=== PATIENT | male | born 1980 | race Caucasian/White ===

== ENCOUNTER 2016-09-13 11:28 | Inpatient (IN) | payer OTHER ==
[2016-09-13 12:03] LABS: Hematocrit 44 % (42-52); Hemoglobin 14.7 g/dl (14.0-18.0); Mean Corpuscular HGB Conc 34 g/dl (31-36); Mean Corpuscular Hemoglobin 29 pg (27-31); Mean Corpuscular Volume 88 fL (80-94); Mean Platelet Volume 8 um3 (7.4-10.4); Red Blood Count 4.98 10^6/ul (4.0-5.4); Red Cell Distribution Width 13 % (10.5-15)
[2016-09-13 12:15] LABS: ALT 16 U/L (7-52); AST 24 U/L (13-39); Alkaline Phosphatase 64 U/L (34-104); Anion Gap 7 mmol/L (2-11); BUN/Creatinine Ratio 9.1 (8-20); Blood Urea Nitrogen 13 mg/dL (6-24); CO2 Carbon Dioxide 28 mmol/L (22-32); Calcium 10.3 mg/dL (8.6-10.3); Chloride 105 mmol/L (101-111); EGFR African American 72.8 (>60); EGFR Non-African American 56.6 (>60); Globulin 2.7 g/dL (2-4); Glucose 96 mg/dL (70-100); Potassium 4.1 mmol/L (3.5-5.0); Sodium 140 mmol/L (133-145); Total Protein 7.7 g/dL (6.4-8.9)
[2016-09-13] MEDS ORDERED: Haloperidol INJ IV/IM* 5 MG/ML AMP ONE (12:24)
[2016-09-13] MEDS ORDERED: LORazepam INJ* 2 MG/ML 1 ML VIAL ONE (12:25)
[2016-09-13] MEDS ORDERED: Haloperidol INJ IV/IM* 5 MG/ML AMP IM ONE (12:49)
[2016-09-13] MEDS ORDERED: LORazepam INJ* 2 MG/ML 1 ML VIAL IM ONE (12:49)
[2016-09-13 12:54] LABS: Acetaminophen < 15 mcg/mL; Alcohol < 10 mg/dL (<10); Salicylate < 2.50 mg/dL (<30)
[2016-09-13 13:05] LABS: TSH (Thyroid Stimulating Horm) 1.63 mcIU/mL (0.34-5.60)
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
[2016-09-13] MEDS ORDERED: Cetirizine* 10 MG TAB PO PRN (17:17)
[2016-09-13] MEDS ORDERED: Nicotine Inhaler* 10 MG AMP INH PRN (17:20)
[2016-09-13 17:24] LABS: Urine Bilirubin Negative (Negative); Urine Glucose Negative (Negative); Urine Nitrite Negative (Negative)
[2016-09-13 17:43] LABS: Benzodiazepine Urine Screen None Detected (None Detect)
[2016-09-13] MEDS: Gabapentin CAP(*) 300 MG PO SCH (20:45)
[2016-09-13] MEDS: Zolpidem TAB* 10 MG PO PRN (20:45)
[2016-09-13] MEDS: clonazePAM TAB(*) 1 MG PO PRN (20:47)
[2016-09-13] MEDS ORDERED: diPHENhydraMINE PO* 50 MG ONE (23:09)
[2016-09-14] MEDS: clonazePAM TAB(*) 1 MG PO PRN (01:45)
[2016-09-14] MEDS ORDERED: Acetaminophen TAB* 325 MG ONE (06:15)
[2016-09-14] MEDS: DULoxetine DR CAP* 60 MG CAP.DR PO SCH (08:30)
[2016-09-14] MEDS: Gabapentin CAP(*) 300 MG PO SCH ×3 (08:31→21:36)
[2016-09-14] MEDS: Fluticasone NASAL SPRAY 50MCG* 16 gm SPRAY BTL BOTH NARES SCH (09:47)
[2016-09-14] MEDS: KETOTIFEN FUMARATE 0.025% OPHTHALMIC SCH (09:48)
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
[2016-09-14] MEDS: Acetaminophen TAB* 325 MG PO PRN (20:26)
[2016-09-14] MEDS: Zolpidem TAB* 10 MG PO PRN (21:36)
[2016-09-14] MEDS: diPHENhydraMINE PO* 50 MG PO PRN (21:36)
[2016-09-15] MEDS: Gabapentin CAP(*) 300 MG PO SCH ×3 (08:54→21:30)
[2016-09-15] MEDS: DULoxetine DR CAP* 60 MG CAP.DR PO SCH (08:54)
[2016-09-15] MEDS: Cetirizine* 10 MG TAB PO SCH (08:55)
[2016-09-15] MEDS: Artificial Tears* 15 ML BTL BOTH EYES PRN (08:55)
[2016-09-15] MEDS: KETOTIFEN FUMARATE 0.025% OPHTHALMIC SCH (09:03)
[2016-09-15] MEDS: Fluticasone NASAL SPRAY 50MCG* 16 gm SPRAY BTL BOTH NARES SCH (09:03)
[2016-09-15] MEDS: Acetaminophen TAB* 325 MG PO PRN (11:08)
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
--- NOTE | 2016-09-15 18:13 | PN ---
Subjective - Subjective Subjective: Patient refused to see Tyrell Enrique CYBER LEGAL ADVISOR because he was not a psychiatrist. The patient does not have a set psychiatrist since Dr. Ndiaye is on vacation. He is mainly interested in obtaining Provigil from me, saying that he had sleep apnea (the last study was inconclusive but leaned against; the patient ended the study early). Objective - Appearance Appearance: Well Developed/Nourished Dysmorphic Features: No Hygiene: Normal Grooming: Well Kept - Behavior Psychomotor Activities: Normal Exhibits Abnormal Movement: No - Attitude and Relatedness Attitude and Relatedness: Dismissive Eye Contact: Fair - Speech Quality: Unpressured Latencies: Normal Quantity: Appropriate - Mood Patient's Decription of Mood: "Okay" - Affect Observed Affect: Constricted Affect Consistent with: Euthymia - Thought Process Patient's Thought Process: Over Inclusive Thought Content: No Passive Wish, No Suicidal Planning, No Homicidal Ideation, No Paranoid Ideation - Sensorium Experiencing Hallucinations: No, Sensorium is Clear Type of Hallucinations: Visual: No, Auditory: No, Command: No - Level of Consciousness Level of Consciousness: Alert Orientation: Yes Intact, Yes Orientated to Time, Yes Orientated to Place, Yes Orientated to Person - Impulse Control Impulse Control: Impaired - Insight and Judgement Insight and Judgement: Poor - Group Participation Particating in Group Activities: Yes - Medication Management Medication Management Adherence: Yes Assessment - Assessment Merits Inpatient Hospitalization: For Immediate Safety, Consolidate Improvements Inpatient DSM-IV Dx: Unspecified Psychotic Disorder, Unspecified Impulse control disorder Clinical Impression: The patient has no sedation despite request for Provigil. He reports a past diagnosis of sleep apnea. I advised him that Klonopin has been shown to worsen sleep apnea. I was willing to consider a Provigil prescription if he had a prescriber before his stay here and will have one later; it became apparent that he is obtaining the pills illicitly. He requested to defer our conversation and will discuss with his next doctor. He has been quite impulsive, reporting a seroquel overdose with alleged intent to some days ago and having psychomotor agitation at the [facility] program. He needs further treatment to stabilize this affective impulsivity. Plan - Plan Treatment Plan: Name: SAUMYA GARDUNO Birthdate: 1980 [id number] Medications: Current Medications Acetaminophen (Tylenol Tab*) 650 mg PO Q4H PRN PRN Reason: PAIN Last Admin: 09/15/16 11:08 Dose: 650 mg Cetirizine HCl (Zyrtec*) 10 mg PO DAILY [facility] Last Admin: 09/15/16 08:55 Dose: 10 mg Clonazepam (Klonopin Tab(*)) 1 mg PO BID PRN PRN Reason: ANXIETY Last Admin: 09/14/16 01:45 Dose: 1 mg Diphenhydramine HCl (Benadryl Po*) 50 mg PO BEDTIME PRN PRN Reason: INSOMNIA Last Admin: 09/14/16 21:36 Dose: 50 mg Duloxetine HCl (Cymbalta Cap*) 60 mg PO DAILY [facility] Last Admin: 09/15/16 08:54 Dose: 60 mg Fluticasone Propionate (Flonase Nasal [place] 50mcg*) 1 spray BOTH NARES DAILY [facility] Last Admin: 09/15/16 09:03 Dose: Not Given Gabapentin (Neurontin Cap(*)) 600 mg PO TID [facility] Last Admin: 09/15/16 13:17 Dose: 600 mg Nicotine (Nicotine Inhaler*) 10 mg INH Q2H PRN PRN Reason: CRAVING Ketotifen Fumarate ( Ophth) [Zaditor] 0. 025 % 0.025 % OPHTHALMIC DAILY [facility] Last Admin: 09/15/16 09:03 Dose: Not Given Polyvinyl Alcohol (Polyvinyl Alcohol 1.4% Opth*) 1 - 2 drop BOTH EYES Q2H PRN PRN Reason: DRY EYES Last Admin: 09/15/16 08:55 Dose: 2 maria fernanda Zolpidem Tartrate (Ambien Tab*) 10 mg PO BEDTIME PRN PRN Reason: INSOMNIA Last Admin: 09/14/16 21:36 Dose: 10 mg - Discharge Plan Discharge Plan: Outpatient Follow Up Outpatient Program: [facility]
[2016-09-15] MEDS: Zolpidem TAB* 10 MG PO PRN (21:32)
[2016-09-15] MEDS: clonazePAM TAB(*) 1 MG PO PRN (21:32)
[2016-09-16] MEDS: clonazePAM TAB(*) 1 MG PO PRN (09:05)
[2016-09-16] MEDS: Cetirizine* 10 MG TAB PO SCH (09:06)
[2016-09-16] MEDS: Gabapentin CAP(*) 300 MG PO SCH ×3 (09:06→21:27)
[2016-09-16] MEDS: DULoxetine DR CAP* 60 MG CAP.DR PO SCH (09:06)
[2016-09-16] MEDS: Fluticasone NASAL SPRAY 50MCG* 16 gm SPRAY BTL BOTH NARES SCH (09:07)
[2016-09-16] MEDS: KETOTIFEN FUMARATE 0.025% OPHTHALMIC SCH (09:09)
[2016-09-16 09:55] LABS: Calcium 9.5 mg/dL (8.6-10.3); EGFR African American 98.5 (>60); EGFR Non-African American 76.6 (>60); Potassium 4.2 mmol/L (3.5-5.0)
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
[2016-09-16] MEDS: OMEGA PO SCH ×2 (20:59→21:32)
[2016-09-16] MEDS: FATTY ACIDS PO SCH ×2 (20:59→21:32)
[2016-09-16] MEDS: Zolpidem TAB* 10 MG PO PRN (21:29)
[2016-09-17] MEDS: DULoxetine DR CAP* 60 MG CAP.DR PO SCH (09:05)
[2016-09-17] MEDS: Cetirizine* 10 MG TAB PO SCH (09:05)
[2016-09-17] MEDS: Gabapentin CAP(*) 300 MG PO SCH ×3 (09:05→21:14)
[2016-09-17] MEDS: OMEGA PO SCH (09:06)
[2016-09-17] MEDS: FATTY ACIDS PO SCH (09:06)
[2016-09-17] MEDS: KETOTIFEN FUMARATE 0.025% OPHTHALMIC SCH (09:07)
[2016-09-17] MEDS: clonazePAM TAB(*) 1 MG PO PRN (09:08)
[2016-09-17] MEDS: Fluticasone NASAL SPRAY 50MCG* 16 gm SPRAY BTL BOTH NARES SCH (09:13)
[2016-09-17] MEDS: Artificial Tears* 15 ML BTL BOTH EYES PRN ×2 (09:51→21:13)
[2016-09-17] MEDS: Acetaminophen TAB* 325 MG PO PRN ×3 (09:51→21:14)
[2016-09-17] MEDS: Zolpidem TAB* 10 MG PO PRN (21:14)
[2016-09-18] MEDS: OMEGA PO SCH (08:26)
[2016-09-18] MEDS: FATTY ACIDS PO SCH (08:26)
[2016-09-18] MEDS: Cetirizine* 10 MG TAB PO SCH (08:28)
[2016-09-18] MEDS: DULoxetine DR CAP* 60 MG CAP.DR PO SCH (08:28)
[2016-09-18] MEDS: Gabapentin CAP(*) 300 MG PO SCH ×3 (08:28→21:49)
[2016-09-18] MEDS: Fluticasone NASAL SPRAY 50MCG* 16 gm SPRAY BTL BOTH NARES SCH (08:29)
[2016-09-18] MEDS: KETOTIFEN FUMARATE 0.025% OPHTHALMIC SCH (08:30)
--- NOTE | 2016-09-18 14:02 | PN ---
MHU: Group Therapy Note - Service Type Service Type: [id number] Group Psychotherapy - Cognitive Behavioral Group Therapy ( CBT):Patient was attentive and participatory in CBT programming this morning, and remained in good behavioral control. Patient expressed positive insights regarding relevant treatment interventions and goals.
[2016-09-18] MEDS: clonazePAM TAB(*) 1 MG PO PRN ×2 (16:47→21:50)
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
[2016-09-18] MEDS: diPHENhydraMINE PO* 50 MG PO PRN (21:50)
[2016-09-19] MEDS: Gabapentin CAP(*) 300 MG PO SCH ×3 (09:04→21:53)
[2016-09-19] MEDS: Cetirizine* 10 MG TAB PO SCH (09:04)
[2016-09-19] MEDS: clonazePAM TAB(*) 1 MG PO SCH (09:04)
[2016-09-19] MEDS: OMEGA PO SCH (09:05)
[2016-09-19] MEDS: FATTY ACIDS PO SCH (09:05)
[2016-09-19] MEDS: DULoxetine DR CAP* 60 MG CAP.DR PO SCH (09:06)
[2016-09-19] MEDS: KETOTIFEN FUMARATE 0.025% OPHTHALMIC SCH (09:07)
[2016-09-19] MEDS: Fluticasone NASAL SPRAY 50MCG* 16 gm SPRAY BTL BOTH NARES SCH (09:07)
--- NOTE | 2016-09-19 11:08 | PN ---
MHU: Group Therapy Note - Service Type Service Type: [id number] Group Psychotherapy - Cognitive Behavioral Group Therapy ( CBT):Patient was attentive and participatory in CBT programming this morning, and remained in good behavioral control. Patient expressed positive insights regarding relevant treatment interventions and goals.
--- NOTE | 2016-09-19 17:28 | PN ---
Subjective - Subjective Service Type: [id number] Hosp care 15 min low complexity Subjective: Tree was difficult to engage today as he presents with odd delays in responding to questions and can appear argumentative at times. He was upset about an interaction with a peer, who apparently said something in front of the milieu that hurt his feelings, but declines to give me more details, saying "I already processed it with staff." He expresses an interest in having a meeting with Lila Bess, the director of the [facility] program at [facility], to resolve the situation at the clinic leading to his 9.45 transfer to [facility]. SW is arranging that. He continues to deny SI, HI, AH and VH. Objective - Appearance Appearance: Well Developed/Nourished Dysmorphic Features: No Hygiene: Normal Grooming: Well Kept - Behavior Psychomotor Activities: Normal Exhibits Abnormal Movement: No - Attitude and Relatedness Attitude and Relatedness: Guarded Eye Contact: Fair - Speech Quality: Unpressured Latencies: Long Quantity: Appropriate - Mood Patient's Decription of Mood: "Upset" - Affect Observed Affect: Constricted Affect Consistent with: Dysphoria - Thought Process Patient's Thought Process: Circumstantial Thought Content: Yes Paranoid Ideation, No Passive Wish, No Suicidal Planning, No Homicidal Ideation - Sensorium Experiencing Hallucinations: No, Sensorium is Clear Type of Hallucinations: Visual: No, Auditory: No, Command: No - Level of Consciousness Level of Consciousness: Alert Orientation: Yes Intact, Yes Orientated to Time, Yes Orientated to Place, Yes Orientated to Person - Impulse Control Impulse Control: Tenuous - Insight and Judgement Insight and Judgement: Fair - Group Participation Particating in Group Activities: Yes - Medication Management Medication Management Adherence: Yes Assessment - Assessment Merits Inpatient Hospitalization: For Immediate Safety, For Stabilization Inpatient DSM-IV Dx: Unspecified Psychotic Disorder, Unspecified Impulse control disorder Clinical Impression: 35 y.o. mixed-race (white and ) single male with a history of chronic depression admitted involuntarily from [facility], where he had presented as agitated and admitting to a recent suicide attempt via overdose on quetiapine. Plan - Plan Treatment Plan: Name: TREE GARDUNO Birthdate: 1980 [id number] The patient remains on his outpatient regimen of gabapentin, duloxetine, clonazepam and zolpidem. His affect seemed worse today and there are concerns that he may be hiding a psychotic process. We will try to facilitate a meeting with [facility] prior to his discharge. Consider MMPI. Continued Medication Management: Continue Outpt Medication Medications: Current Medications Acetaminophen (Tylenol Tab*) 650 mg PO Q4H PRN PRN Reason: PAIN Last Admin: 09/17/16 21:14 Dose: 650 mg Cetirizine HCl (Zyrtec*) 10 mg PO DAILY [facility] Last Admin: 09/19/16 09:04 Dose: 10 mg Clonazepam (Klonopin Tab(*)) 1 mg PO BID PRN PRN Reason: ANXIETY Last Admin: 09/18/16 21:50 Dose: 1 mg Clonazepam (Klonopin Tab(*)) 1 mg PO DAILY [facility] Last Admin: 09/19/16 09:04 Dose: 1 mg Diphenhydramine HCl (Benadryl Po*) 50 mg PO BEDTIME PRN PRN Reason: INSOMNIA Last Admin: 09/18/16 21:50 Dose: 50 mg Duloxetine HCl (Cymbalta Cap*) 60 mg PO DAILY [facility] Last Admin: 09/19/16 09:06 Dose: 60 mg Fish Oil (Fish Oil (Nf)) 7,000 mg PO DAILY [facility] PRN Reason: Protocol Last Admin: 09/19/16 09:05 Dose: 7,000 mg Fluticasone Propionate (Flonase Nasal [place] 50mcg*) 1 spray BOTH NARES DAILY [facility] Last Admin: 09/19/16 09:07 Dose: Not Given Gabapentin (Neurontin Cap(*)) 600 mg PO TID [facility] Last Admin: 09/19/16 14:15 Dose: 600 mg Nicotine (Nicotine Inhaler*) 10 mg INH Q2H PRN PRN Reason: CRAVING Ketotifen Fumarate ( Ophth) [Zaditor] 0. 025 % 0.025 % OPHTHALMIC DAILY [facility] Last Admin: 09/19/16 09:07 Dose: Not Given Polyvinyl Alcohol (Polyvinyl Alcohol 1.4% Opth*) 1 - 2 drop BOTH EYES Q2H PRN PRN Reason: DRY EYES Last Admin: 09/17/16 21:13 Dose: 2 maria fernanda Zolpidem Tartrate (Ambien Tab*) 10 mg PO BEDTIME PRN PRN Reason: INSOMNIA Last Admin: 09/17/16 21:14 Dose: 10 mg - Discharge Plan Discharge Plan: Inpatient Hospitalization
[2016-09-19] MEDS: diPHENhydraMINE PO* 50 MG PO PRN (21:56)
[2016-09-20] MEDS: clonazePAM TAB(*) 1 MG PO SCH (08:46)
[2016-09-20] MEDS: OMEGA PO SCH (08:46)
[2016-09-20] MEDS: FATTY ACIDS PO SCH (08:46)
[2016-09-20] MEDS: DULoxetine DR CAP* 60 MG CAP.DR PO SCH (08:47)
[2016-09-20] MEDS: Cetirizine* 10 MG TAB PO SCH (08:47)
[2016-09-20] MEDS: Gabapentin CAP(*) 300 MG PO SCH ×3 (08:47→21:06)
[2016-09-20] MEDS: Fluticasone NASAL SPRAY 50MCG* 16 gm SPRAY BTL BOTH NARES SCH (08:55)
[2016-09-20] MEDS: KETOTIFEN FUMARATE 0.025% OPHTHALMIC SCH (08:55)
[2016-09-20] MEDS ORDERED: Naphazoline/Pheniramine OPTH* 5 ML BTL BOTH EYES PRN (10:15)
--- NOTE | 2016-09-20 14:10 | PN ---
MHU: Group Therapy Note - Service Type Service Type: [id number] Group Psychotherapy - Cognitive Behavioral Group Therapy ( CBT):Patient was attentive and participatory in CBT programming this morning, and remained in good behavioral control. Patient expressed positive insights regarding relevant treatment interventions and goals.
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
[2016-09-20] MEDS: diPHENhydraMINE PO* 50 MG PO PRN (21:06)
[2016-09-21 07:55] VITALS: BP 123/75
[2016-09-21] MEDS: clonazePAM TAB(*) 1 MG PO SCH (08:51)
[2016-09-21] MEDS: Fluticasone NASAL SPRAY 50MCG* 16 gm SPRAY BTL BOTH NARES SCH (08:51)
[2016-09-21] MEDS: DULoxetine DR CAP* 60 MG CAP.DR PO SCH (08:51)
[2016-09-21] MEDS: Cetirizine* 10 MG TAB PO SCH (08:52)
[2016-09-21] MEDS: Gabapentin CAP(*) 300 MG PO SCH (08:52)
[2016-09-21] MEDS: FATTY ACIDS PO SCH (08:54)
[2016-09-21] MEDS: OMEGA PO SCH (08:54)
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
== END 2016-09-21 12:15 | disposition home or self-care (01) | DRG 754 ==
LOC: ED 11:28 → BSU 15:18
PROVIDERS: ADMIT Psychiatry & Neurology Psychiatry; ATTEND Psychiatry & Neurology Psychiatry
PROC: GZHZZZZ Group Psychotherapy (ICD-10-PCS; principal; 2016-09-15)
DX: F32.9 Major depressive disorder, single episode, unspecified (principal); G62.9 Polyneuropathy, unspecified; F41.9 Anxiety disorder, unspecified; G89.29 Other chronic pain; G47.30 Sleep apnea, unspecified; F63.9 Impulse disorder, unspecified; F41.1 Generalized anxiety disorder; Z91.5 Personal history of self-harm; Z82.49 Family history of ischemic heart disease and other diseases of the circulatory system; Z81.8 Family history of other mental and behavioral disorders
CPT/HCPCS: 36415; 80048; 80053; 80307; 80320; 80329; 81003; 84443; 85025; 90853; 93005; 99222; 99231; 99233; 99238; A9270-GY; G0480; J1630; J2060

== ENCOUNTER 2016-11-16 13:55 | Emergency (ER) | payer OTHER ==
[2016-11-16] MEDS ORDERED: NS 0.9% 1000 ML* 1,000 ML IV ONE ×2 (14:04→16:33)
[2016-11-16 14:32] LABS: Hematocrit 43 % (42-52); Hemoglobin 14.3 g/dl (14.0-18.0); Mean Corpuscular HGB Conc 33 g/dl (31-36); Mean Corpuscular Hemoglobin 28 pg (27-31); Mean Corpuscular Volume 85 fL (80-94); Mean Platelet Volume 8 um3 (7.4-10.4); Red Blood Count 5.06 10^6/ul (4.0-5.4); Red Cell Distribution Width 13 % (10.5-15); White Blood Count 7.5 10^3/ul (3.5-10.8)
[2016-11-16 14:47] LABS: ALT 17 U/L (7-52); AST 24 U/L (13-39); Albumin 4.3 g/dL (3.2-5.2); Alkaline Phosphatase 72 U/L (34-104); Anion Gap 7 mmol/L (2-11); BUN/Creatinine Ratio 8.4 (8-20); Blood Urea Nitrogen 10 mg/dL (6-24); CO2 Carbon Dioxide 25 mmol/L (22-32); Calcium 9.6 mg/dL (8.6-10.3); Chloride 106 mmol/L (101-111); Creatine Kinase 203 U/L (10-223); EGFR African American 89.5 (>60); EGFR Non-African American 69.6 (>60); Globulin 2.5 g/dL (2-4); Glucose 116 mg/dL (70-100); Potassium 3.5 mmol/L (3.5-5.0); Sodium 138 mmol/L (133-145); Total Protein 6.8 g/dL (6.4-8.9)
[2016-11-16 15:04] LABS: Acetaminophen < 15 mcg/mL; Alcohol < 10 mg/dL (<10)
--- NOTE | 2016-11-16 15:07 | RAD ---
Indication: Confusion, hemorrhage. CT of the brain was performed without IV contrast. Ventricular structures are midline. No midline shift is noted. The extra-axial spaces are unremarkable. There is no evidence of intracranial mass or hemorrhage. No other high or low density lesions are identified. There is evidence of chronic sinusitis of the left maxillary sinus. Mastoid air cells are otherwise unremarkable. IMPRESSION: No intracranial mass or hemorrhage is noted.
[2016-11-16 15:14] LABS: TSH (Thyroid Stimulating Horm) 2.57 mcIU/mL (0.34-5.60)
[2016-11-16 17:50] LABS: Urine Bilirubin Negative (Negative); Urine Glucose Negative (Negative); Urine Nitrite Negative (Negative)
[2016-11-16 18:11] LABS: Benzodiazepine Urine Screen None Detected (None Detect)
--- NOTE | 2016-11-16 22:39 | ED ---
Jose Alejandro Diaz Thomas, scribed for Noel Stovall MD on 11/16/16 at 1404 . Altered Mental Status - HPI Summary HPI Summary: Pt is a 36 y/o M BIBA with AMS characterized as unresponsiveness s/p suspected administration of 2 sleeping pills [employer]IAN. Per EMS, pt was at the library when EMS was called, and when EMS arrived they applied Narcan. Per EMS, the pt was responsive to painful stimuli. The EMS notes that the pt was prescribed sleeping medication 7 days ago but he was found with only 5 pills. In the ED, the pt is snoring loudly. The patient woke during the physical exam. Patient is a level 5 caveat due to AMS characterized as unresponsiveness. - History Of Current Complaint Stated Complaint: UNRESPONSIVE Time Seen by Provider: 11/16/16 14:00 Hx Obtained From: Patient, EMS Hx From Patient Unobtainable Due To: Other - AMS characterized as unresponsiveness Onset/Duration: Unknown Character: Responsiveness - Unresponsiveness Aggravating Factor(s): Unknown Alleviating Factor(s): Unknown - Allergies/Home Medications Allergies/Adverse Reactions: Allergies Allergy/AdvReac Type Severity Reaction Status Date / Time No Known Allergies Allergy Verified 09/13/16 12:30 PMH/Surg Hx/FS Hx/Imm Hx Previously Healthy: No Respiratory History: Reports: Hx Sleep Apnea Sensory History: Reports: Hx Contacts or Glasses Denies: Hx Hearing Aid Opthamlomology History: Reports: Hx Contacts or Glasses Psychiatric History: Reports: Hx Anxiety, Hx Depression Denies: Hx Eating Disorder, Hx of Violent Episodes Against Others - Surgical History Surgery Procedure, Year, and Place: No surgeries. - Family History Known Family History: Positive: Cardiac Disease - Ventricular fib. , Other - Mild depression mother. - Social History Alcohol Use: Weekly Hx Substance Use: Yes Substance Use Type: Reports: Other Substance Use Comment - Amount & Last Used: possible OD yesterday but details vague, pt not answering Hx Tobacco Use: No Smoking Status (MU): Unknown if Ever Smoked Review of Systems - ROS Summary Review of Systems Summary: Patient is a level 5 caveat due to unresponsiveness and AMS. Neurological: Other - POS: AMS characterized as unresponsiveness All Other Systems Reviewed And Are Negative: No Physical Exam - Summary Physical Exam Summary: The patient is well-nourished in no acute distress and in no acute pain. The skin is warm and dry and skin color reflects adequate perfusion. HEENT: No hemotympanum. The head is normocephalic and atraumatic. The pupils are equal and reactive. Dilated pupils. The conjunctivae are clear and without drainage. Nares are patent and without drainage. Mouth reveals moist mucous membranes and the throat is without erythema and exudate. The external ears are intact. The ear canals are patent and without drainage. The tympanic membranes are intact. Neck is supple with full range of motion and non-tender. There is no neck vein distension. Respiratory: Chest is non-tender. Lungs are clear to auscultation and breath sounds are symmetrical and equal. Cardiovascular: Hear is regular rate and rhythm. There is no murmur or rub auscultated. There is no peripheral edema and pulses are symmetrical and equal. Abdomen: The abdomen is soft and non-tender. There are normal bowel sounds heard in all four quadrants and there is no organomegaly palpated. Musculoskeletal: No evidence of head trauma. No basilar skull fracture. No gray or racoon sign. There is no back pain noted. Extremities are non-tender with full range of motion. There is good capillary refill. There is no peripheral edema or calf tenderness elicited. Neurological: Somnolent. Responds to painful stimuli. Follows commands. The patient has symmetrical motor strength in all four extremities. Deep tendon reflexes are symmetrical and equal in all four extremities. Good gag reflex. Psychiatric: The patient has an appropriate affect and does not exhibit any anxiety or depression. Triage Information Reviewed: Yes Vital Signs On Initial Exam: Initial Vitals BP 137/85 11/16/16 14:01 Vital Signs Reviewed: Yes Diagnostics - Vital Signs Vital Signs Temp Pulse Resp BP Pulse Ox 11/16/16 21:23 97.8 F 98 17 137/82 98 11/16/16 20:30 122/88 11/16/16 20:16 93 121/73 97 11/16/16 20:00 86 96 11/16/16 19:30 91 129/86 98 11/16/16 19:17 102 99 11/16/16 19:15 133/83 11/16/16 17:00 18 11/16/16 16:00 98 14 98 11/16/16 15:00 109 15 98 11/16/16 14:30 114 15 131/71 96 06/22/17 14:18 97.7 F 113 18 137/85 96 11/16/16 14:02 131 20 96 11/16/16 14:01 137/85 - Laboratory Lab Results: Lab Results 11/16/16 11/16/16 11/16/16 Range/Units 14:15 14:15 14:15 WBC 7.5 (3.5-10.8) 10^3/ul RBC 5.06 (4.0-5.4) 10^6/ul Hgb 14.3 (14.0-18.0) g/dl Hct 43 (42-52) % MCV 85 (80-94) fL MCH 28 (27-31) pg MCHC 33 (31-36) g/dl RDW 13 (10.5-15) % Plt Count 226 (150-450) 10^3/ul MPV 8 (7.4-10.4) um3 Neut % (Auto) 61.3 (38-83) % Lymph % (Auto) 27.3 (25-47) % [place] % (Auto) 8.7 (1-9) % Eos % (Auto) 1.8 (0-6) % Baso % (Auto) 0.9 (0-2) % Absolute Neuts (auto) 4.6 (1.5-7.7) 10^3/ul Absolute Lymphs (auto) 2.0 (1.0-4.8) 10^3/ul Absolute Monos (auto) 0.7 (0-0.8) 10^3/ul Absolute Eos (auto) 0.1 (0-0.6) 10^3/ul Absolute Basos (auto) 0.1 (0-0.2) 10^3/ul Absolute Nucleated RBC 0.01 10^3/ul Nucleated RBC % 0.1 Sodium 138 (133-145) mmol/L Potassium 3.5 (3.5-5.0) mmol/L Chloride 106 (101-111) mmol/L Carbon Dioxide 25 (22-32) mmol/L Anion Gap 7 (2-11) mmol/L BUN 10 (6-24) mg/dL Creatinine 1.19 H (0.67-1.17) mg/dL Est GFR ( Amer) 89.5 (>60) Est GFR (Non-Af Amer) 69.6 (>60) BUN/Creatinine Ratio 8.4 (8-20) Glucose 116 H (70-100) mg/dL Lactic Acid 1.6 (0.5-2.0) mmol/L Calcium 9.6 (8.6-10.3) mg/dL Magnesium 2.0 (1.9-2.7) mg/dL Total Bilirubin 0.40 (0.2-1.0) mg/dL AST 24 (13-39) U/L ALT 17 (7-52) U/L Alkaline Phosphatase 72 (34-104) U/L Total Creatine Kinase 203 (10-223) U/L Troponin I 0.00 (<0.04) ng/mL Total Protein 6.8 (6.4-8.9) g/dL Albumin 4.3 (3.2-5.2) g/dL Globulin 2.5 (2-4) g/dL Albumin/Globulin Ratio 1.7 (1-3) TSH 2.57 (0.34-5.60) mcIU/mL Urine Color Urine Appearance Urine pH (5-9) Ur Specific [place] (1.010-1.030) Urine Protein (Negative) Urine Ketones (Negative) Urine Blood (Negative) Urine Nitrate (Negative) Urine Bilirubin (Negative) Urine Urobilinogen (Negative) Ur Leukocyte Esterase (Negative) Urine Glucose (Negative) Salicylates 3.20 (<30) mg/dL Urine Opiates Screen (None Detect) Acetaminophen < 15 mcg/mL Ur Barbiturates Screen (None Detect) Ur Phencyclidine Scrn (None Detect) Ur Amphetamines Screen (None Detect) U Benzodiazepines Scrn (None Detect) Urine Cocaine Screen (None Detect) U Cannabinoids Screen (None Detect) Serum Alcohol < 10 (<10) mg/dL 11/16/16 11/16/16 Range/Units 17:39 17:39 WBC (3.5-10.8) 10^3/ul RBC (4.0-5.4) 10^6/ul Hgb (14.0-18.0) g/dl Hct (42-52) % MCV (80-94) fL MCH (27-31) pg MCHC (31-36) g/dl RDW (10.5-15) % Plt Count (150-450) 10^3/ul MPV (7.4-10.4) um3 Neut % (Auto) (38-83) % Lymph % (Auto) (25-47) % [place] % (Auto) (1-9) % Eos % (Auto) (0-6) % Baso % (Auto) (0-2) % Absolute Neuts (auto) (1.5-7.7) 10^3/ul Absolute Lymphs (auto) (1.0-4.8) 10^3/ul Absolute Monos (auto) (0-0.8) 10^3/ul Absolute Eos (auto) (0-0.6) 10^3/ul Absolute Basos (auto) (0-0.2) 10^3/ul Absolute Nucleated RBC 10^3/ul Nucleated RBC % Sodium (133-145) mmol/L Potassium (3.5-5.0) mmol/L Chloride (101-111) mmol/L Carbon Dioxide (22-32) mmol/L Anion Gap (2-11) mmol/L BUN (6-24) mg/dL Creatinine (0.67-1.17) mg/dL Est GFR ( Amer) (>60) Est GFR (Non-Af Amer) (>60) BUN/Creatinine Ratio (8-20) Glucose (70-100) mg/dL Lactic Acid (0.5-2.0) mmol/L Calcium (8.6-10.3) mg/dL Magnesium (1.9-2.7) mg/dL Total Bilirubin (0.2-1.0) mg/dL AST (13-39) U/L ALT (7-52) U/L Alkaline Phosphatase (34-104) U/L Total Creatine Kinase (10-223) U/L Troponin I (<0.04) ng/mL Total Protein (6.4-8.9) g/dL Albumin (3.2-5.2) g/dL Globulin (2-4) g/dL Albumin/Globulin Ratio (1-3) TSH (0.34-5.60) mcIU/mL Urine Color Yellow Urine Appearance Clear Urine pH 5.0 (5-9) Ur Specific [place] 1.009 L (1.010-1.030) Urine Protein Negative (Negative) Urine Ketones Negative (Negative) Urine Blood Negative (Negative) Urine Nitrate Negative (Negative) Urine Bilirubin Negative (Negative) Urine Urobilinogen Negative (Negative) Ur Leukocyte Esterase Negative (Negative) Urine Glucose Negative (Negative) Salicylates (<30) mg/dL Urine Opiates Screen None detected (None Detect) Acetaminophen mcg/mL Ur Barbiturates Screen None detected (None Detect) Ur Phencyclidine Scrn None detected (None Detect) Ur Amphetamines Screen None detected (None Detect) U Benzodiazepines Scrn None detected (None Detect) Urine Cocaine Screen None detected (None Detect) U Cannabinoids Screen None detected (None Detect) Serum Alcohol (<10) mg/dL Result Diagrams: 11/16/16 14:15 11/16/16 14:15 Lab Statement: Any lab studies that have been ordered have been reviewed, and results considered in the medical decision making process. - CT Brain CT CT Interpretation: No Acute Changes - No intracranial mass of hemorrhage is noted. CT Interpretation Completed By: Radiologist - EKG 1419 Cardiac Rate: Tachycardia - 115 bpm EKG Rhythm: Sinus Tachycardia ST Segment: Non-Specific - Non-specific ST changes EKG Interpretation: Normal axis, no STEMI Re-Evaluation - Re-Evaluation First Eval Re-Evaluation Time: 18:10 Change: Unchanged Comment: Patient is awake. He says he was at the library and fell asleep. He says he took 2 Ambien to overcome his social anxiety and "get things done". He denies trying to hurt himself. He does not always take 2 Ambien. Fell asleep library. Was chilling at library. Took Ambien to overcome social anxiety and get thigns done. Was not tyring to hurt self. Doesnt always take 2 ambien. Not hearing voices. Was recently at hospital for OD. Cleared for MHE Altered Mental Statu Course/Dx - Course Course Of Treatment: Pt is a 36 y/o M BIBA with AMS and unresponsiveness. Per EMS, pt was at the library when EMS was called, and when EMS arrived they applied Narcan. Per EMS, the pt was responsive to painful stimuli. The EMS notes that the pt was prescribed sleeping pills 7 days ago but he was found with only 5 pills. In the ED, the pt is snoring loudly. The patient woke during the physical exam. Patient is a level 5 caveat due to unresponsiveness and AMS. Medically cleared for MHE at 2025. Brain CT reveals no acute findings. EKG reveals no STEMI. - Diagnoses Discharge Diagnoses: Overdose, Depression Discharge - Discharge Plan Condition: Stable Disposition: OTHER Discharge Disposition Comment: Pt will be signed out, pending dispo, awaiting MHE. Referrals: Maribell Allan MD [Primary Care Provider] - The documentation as recorded by the Jose Alejandro ryder Thomas accurately reflects the service I personally performed and the decisions made by me, Noel Stovall MD.
[2016-11-17 00:40] VITALS: BP 126/81
== END 2016-11-17 00:43 ==
LOC: ED 13:55
DX: T65.91XA Toxic effect of unspecified substance, accidental (unintentional), initial encounter (principal); F32.9 Major depressive disorder, single episode, unspecified; Y92.9 Unspecified place or not applicable
CPT/HCPCS: 36415; 70450; 80053; 80307; 80320; 80329; 81003; 82550; 83605; 83735; 84443; 84484; 85025; 93005; 99284; G0480

== ENCOUNTER 2023-06-05 11:33 | Inpatient (IN) ==
[~2023-06-05 11:33] MED LIST: Influenza vaccine *QUAD* *2023-24* 0.5 ML SYRINGE IM ONE
[2023-06-05 14:44] LABS: Urine Appearance Clear; Urine Bilirubin Negative (Negative); Urine Blood Negative (Negative); Urine Color Straw; Urine Glucose Negative (Negative); Urine Ketones Negative (Negative); Urine Nitrite Negative (Negative); Urine Protein Negative (Negative); Urine Specific Gravity 1.005 (1.002-1.030); Urine Urobilinogen Negative (Negative)
[2023-06-05 14:55] LABS: Urine Benzodiazepine Screen None Detected (None Detect); Urine Cannabinoids Screen None Detected (None Detect); Urine Opiates Screen None Detected (None Detect)
[2023-06-05] MEDS ORDERED: Al Hydrox/Mg Hydrox/Simet LIQ 30 ML UDC PO PRN (15:05)
[2023-06-06 08:04] LABS: Hematocrit 43.7 % (38-53); Hemoglobin 14.9 g/dL (13.2-16.3); Mean Corpuscular Hemoglobin 27.4 pg (27-33); Mean Corpuscular Hgb Conc 34.1 g/dL (31-36); Mean Corpuscular Volume 80.3 fL (80-97); Mean Platelet Volume 7.8 fL (7.5-11.2); Platelet Count 280 10^3/uL (150-450); Red Blood Count 5.44 10^6/uL (4.06-5.63); Red Cell Distribution Width 14.5 % (12-17); White Blood Count 6.6 10^3/uL (3.6-10.2)
[2023-06-06] MEDS: Vitamin THERAPEUTIC TAB PO SCH (08:23)
[2023-06-06 08:24] LABS: Albumin 4.7 g/dL (3.2-5.2); Albumin/Globulin Ratio 1.6 (1-3); Calcium 10.4 mg/dL (8.6-10.3); Creatinine, Serum 1.14 mg/dL (0.67-1.17); HDL Cholesterol 37.4 mg/dL; Potassium 3.8 mmol/L (3.5-5.0); Total Bilirubin 0.5 mg/dL (0.2-1.0); Total Protein 7.7 g/dL (6.4-8.9); eGFR CKD-EPI 82.9 (>60)
[2023-06-06 08:40] LABS: TSH Ultra Thyroid Stim Horm 1.76 mcIU/mL (0.34-5.60)
[2023-06-06] MEDS ORDERED: COVID VAC 23-24(12+)(Moderna) SYR 0.5 ML IM ONE (09:00)
[2023-06-07] MEDS: Vitamin THERAPEUTIC TAB PO SCH (08:31)
[2023-06-07] MEDS: DESVENLAFAXINE 25 MG PO SCH ×2 (09:58→12:20)
[2023-06-08] MEDS: Vitamin THERAPEUTIC TAB PO SCH (08:28)
[2023-06-08] MEDS: DESVENLAFAXINE 25 MG PO SCH (08:51)
[2023-06-09] MEDS: CMCS: Desvenlafaxine 50 mg TAB ER (NF) PO SCH (08:06)
[2023-06-09] MEDS: Vitamin THERAPEUTIC TAB PO SCH (08:06)
[2023-06-10] MEDS: CMCS: Desvenlafaxine 50 mg TAB ER (NF) PO SCH (08:19)
[2023-06-10] MEDS: Vitamin THERAPEUTIC TAB PO SCH (08:19)
[2023-06-11] MEDS: Vitamin THERAPEUTIC TAB PO SCH (08:50)
[2023-06-11] MEDS: CMCS: Desvenlafaxine 50 mg TAB ER (NF) PO SCH (08:51)
[2023-06-12] MEDS: CMCS: Desvenlafaxine 50 mg TAB ER (NF) PO SCH (08:41)
[2023-06-12] MEDS: Vitamin THERAPEUTIC TAB PO SCH (08:41)
[2023-06-12] MEDS ORDERED: Desvenlafaxine 50 mg TAB ER (NF) PO ONE (11:38)
[2023-06-13] MEDS: Desvenlafaxine 50 mg TAB ER (NF) PO SCH (08:34)
[2023-06-13] MEDS: Vitamin THERAPEUTIC TAB PO SCH (08:35)
[2023-06-14] MEDS: Desvenlafaxine 50 mg TAB ER (NF) PO SCH (08:13)
[2023-06-14] MEDS: Vitamin THERAPEUTIC TAB PO SCH (08:14)
[2023-06-15] MEDS: Vitamin THERAPEUTIC TAB PO SCH (08:33)
[2023-06-15] MEDS: Desvenlafaxine 50 mg TAB ER (NF) PO SCH (08:33)
[2023-06-16] MEDS: Vitamin THERAPEUTIC TAB PO SCH (09:24)
[2023-06-16] MEDS: Desvenlafaxine 50 mg TAB ER (NF) PO SCH (09:25)
[2023-06-17] MEDS: Desvenlafaxine 50 mg TAB ER (NF) PO SCH (09:24)
[2023-06-17] MEDS: Vitamin THERAPEUTIC TAB PO SCH (09:24)
[2023-06-18] MEDS: Desvenlafaxine 50 mg TAB ER (NF) PO SCH (08:26)
[2023-06-18] MEDS: Vitamin THERAPEUTIC TAB PO SCH (09:32)
[2023-06-18 09:40] VITALS: BP 129/78
== END 2023-06-18 12:15 | disposition home or self-care (01) | DRG 754 ==
LOC: ED 11:33 → EDHOLD 15:05 → BSU 16:03
PROVIDERS: ADMIT Psychiatry & Neurology Psychiatry; ATTEND Psychiatry & Neurology Psychiatry